=== PATIENT | female | born 1940 ===

== ENCOUNTER 2018-03-18 09:22 | Outpatient (CLI) | payer OTHER | END 2018-03-18 13:22 | disposition home or self-care (01) | LOC: SONOGRAMA 09:22 → MAMO-SONO 10:15 → SONOGRAMA 13:22 | DX: M25.612 Stiffness of left shoulder, not elsewhere classified (principal) ==

== ENCOUNTER 2019-05-02 08:49 | Outpatient (CLI) | payer OTHER | END 2019-05-02 08:50 | disposition home or self-care (01) | LOC: TOM 08:49 | DX: K56.50 Intestinal adhesions [bands], unspecified as to partial versus complete obstruction (principal); K56.609 Unspecified intestinal obstruction, unspecified as to partial versus complete obstruction; K56.690 Other partial intestinal obstruction ==

== ENCOUNTER 2020-04-24 11:00 | Outpatient (CLI) | payer OTHER | END 2020-04-24 11:11 | disposition home or self-care (01) | LOC: TOM 11:00 | PROVIDERS: ATTEND Internal Medicine Nephrology | DX: K44.9 Diaphragmatic hernia without obstruction or gangrene (principal); N28.89 Other specified disorders of kidney and ureter ==